=== PATIENT | male | born 1995 | race Caucasian/White ===

== ENCOUNTER 2018-08-05 20:10 | Emergency (ER) | payer OTHER ==
[2018-08-05] MEDS ORDERED: TORAdol 30 mg Injection IM ONE (21:42)
[2018-08-05 21:44] VITALS: BP 129/73
[2018-08-05] MEDS ORDERED: TORAdol 30 mg Injection ONE (21:45)
[2018-08-05 21:48] VITALS: O2SAT 99
--- NOTE | 2018-08-05 21:48 | ERPHSYRPT ---
- History of Present Illness Source: patient Exam Limitations: no limitations Patient Subjective Stated Complaint: pt states he rolled his ankle while playing basketball and thinks he might have broken it Triage Nursing Assessment: pt alert and oriented, transfer fr4om wheelchair to stretcher with no assist, nwb on rt, respirations nonlabored with lungs cta. swellinga nd tendernes noted to rt ankle. pedal pulse and cap refill to rle wnl. Physician History: Pt is a 22 y/o male, that rolled his ankle on the right, today, while playing basketball. Pt states the pain and swelling are severe. He is limited with ROM , secondary to pain. Pt denies F/C/S. No cough, no N/V. Method of Injury: sports injury Occurred: just prior to arrival Quality: constant, throbbing, tightness Severity of Pain-Max: moderate Severity of Pain-Current: moderate Lower Extremities Pain: foot: right (swelling and pain), ankle: right (swelling of the lateral maleolus) Modifying Factors: Improves With: pain medication Associated Symptoms: unable to bear weight Allergies/Adverse Reactions: cephalexin [From Keflex] Allergy (Verified 08/05/18 20:21) Hives Home Medications: No Reportable Medications [No Reported Medications] 08/05/18 [History] Hx Tetanus, Diphtheria Vaccination/Date Given: Yes Hx Influenza Vaccination/Date Given: Yes Hx Pneumococcal Vaccination/Date Given: No Immunizations Up to Date: Yes - Review of Systems Constitutional: No Fever, No Chills Respiratory: No Cough, No Dyspnea Cardiac: No Chest Pain, No Edema, No Syncope Abdominal/Gastrointestinal: No Abdominal Pain, No Nausea, No Vomiting, No Diarrhea Musculoskeletal: Joint Pain, Joint Swelling (of R ankle) - Past Medical History Pertinent Past Medical History: No - Past Surgical History Past Surgical History: Yes Musculoskeletal: Orthopedic Surgery Other Surgical History: rt side knee surgery and rt wrsit surgery - Social History Smoking Status: Never smoker Exposure to second hand smoke: No Drug Use: none Patient Lives Alone: No - Nursing Vital Signs Nursing Vital Signs: Initial Vital Signs Pulse Rate 96 H 08/05/18 20:11 Respiratory Rate 16 08/05/18 20:11 Blood Pressure 142/93 08/05/18 20:11 O2 Sat by Pulse Oximetry 100 08/05/18 20:11 Pain Scale Pain Intensity 5 - Physical Exam General Appearance: alert Cardiovascular/Respiratory Exam: chest non-tender, normal breath sounds, regular rate/rhythm, no respiratory distress Gastrointestinal/Abdominal Exam: non-tender, guarding Ankle Exam: right ankle: ecchymosis, limited range of motion, pain, soft tissue tenderness, swelling Foot Exam: right foot: swelling SpO2: 99 - Radiology Exams Ankle X-ray Interpretation: Discussed w/ radiologist (No fx) Ordered Tests: Active Orders 24 hr Category Date Time Status ANKLE (3 VIEWS) Stat Exams 08/05/18 20:20 Taken FOOT (MINIMUM 3 VIEWS) Stat Exams 08/05/18 21:35 Taken Medication Summary Generic Name Dose Route Start Last Admin Trade Name Freq PRN Reason Stop Dose Admin Ketorolac Tromethamine 30 mg 08/05/18 21:42 Toradol 30 Mg Injection IM 08/05/18 21:43 STAT ONE - Progress Progress: improved Progress Note: 08/05/18 21:47 XR of foot and ankle were done, and no fracture was seen. Dr Mosqueda reassured me, and cleared the pt. Toradol was given IM for pain and inflammation control. A walking boot will be given to the pt. Will see patient in: office Counseled pt/family regarding: need for follow-up, rad results - Departure Time of Disposition: 21:52 Departure Disposition: Home Clinical Impression: Ankle sprain Condition: Stable Critical Care Time: No Referrals: DOCTOR,NO FAMILY [Primary Care Provider] - Instructions: Ankle Sprain (DC) Additional Instructions: Elevate the leg and ice the ankle. Ibuprofen OTC can be used on a PRN basis for pain. F/U with your physician.
[2018-08-05 22:07] VITALS: PULSE 72
--- NOTE | 2018-08-06 08:36 | XRAY ---
Indication: Pain following ankle injury. Comparison: None 3 nonweightbearing views of the right foot demonstrates tiny lateral talus accessory ossicle and small cuboid bone island. No other bony, articular, or soft tissue abnormalities.
--- NOTE | 2018-08-06 08:41 | XRAY ---
Indication: Pain and swelling following injury. Comparison: October 29, 2007. 3 views of the right ankle demonstrates anterior lateral soft tissue swelling with stable accessory ossicle interposed between the lateral malleolus and talus. No acute fracture, dislocation, or suspicious bony lesions.
== END 2018-08-05 22:10 ==
LOC: ED 20:10
DX: S93.401A Sprain of unspecified ligament of right ankle, initial encounter (principal); M25.471 Effusion, right ankle; M25.571 Pain in right ankle and joints of right foot; X50.0XXA Overexertion from strenuous movement or load, initial encounter; X50.3XXA Overexertion from repetitive movements, initial encounter; Y93.67 Activity, basketball
CPT/HCPCS: 73610; 73630; 96372; 99284; J1885

== ENCOUNTER 2021-01-19 22:07 | Emergency (ER) | payer OTHER ==
[2021-01-19] MEDS ORDERED: TYLENOL 325 MG PO STA (22:38)
[2021-01-19] MEDS ORDERED: TYLENOL 325 MG ONE (22:47)
[2021-01-19] MEDS ORDERED: Ativan 1 MG PO ONE (23:01)
[2021-01-19] MEDS ORDERED: Ativan 1 MG ONE (23:05)
--- NOTE | 2021-01-19 23:10 | ERPHSYRPT ---
- History of Present Illness Source: patient, other () Patient Subjective Stated Complaint: "My nose is bleeding" Triage Nursing Assessment: 25 y/o white male arrives via private vehicle with his spouse. Recent history of nasal septum surgery on 01-16-[address] Cantu at [facility]. Has been bleeding slowly bleeding since the surgery. Reported acute onset severe bleeding from both nares despite treatments at home. Had contacted the on-call ent and their recommendation did not work. has diffuse headach. Patient is very anxious during the interview and physical. The nose is significantly swollen with a large clot protruding from the right nare and minimal blood oozing. left nare with dried blood. Oral pharynx without blood noted. Physician History: 25 yo wm s/p septoplasty by Dr. Cantu in [place] on 01/17/21 presents w post-op bleeding today. Pt was seen at [facility] ER earlier today and had bleed treated w TXA and cauterization. He states that it stopped briefly but started again. Timing/Duration: persistent (Smal amount of bleeding since surgery but worse today) Severity: mild ENT Location: nose Prearrival Treatment: over the counter meds (Afrin) Modifying Factors: Improves With: nothing Associated Symptoms: headache, epistaxis, No ear pain (R), No ear pain (L), No cough, No fever, No chills, No change in hearing, No dizziness, No drooling, No ear drainage, No facial pain/swelling, No hearing loss, No jaw pain, No malaise, No motion sickness, No nasal congestion/drainage, No nasal foreign body, No neck pain, No poor fluid intake, No poor solids intake, No ringing of ears, No swollen glands, No sinus infection, No sore throat, No tooth pain, No difficulty swallowing, No voice change Allergies/Adverse Reactions: cephalexin [From Keflex] Allergy (Verified 01/19/21 22:13) Hives Home Medications: No Reportable Medications [No Reported Medications] 08/05/18 [History] Hx Tetanus, Diphtheria Vaccination/Date Given: Yes Hx Influenza Vaccination/Date Given: Yes Hx Pneumococcal Vaccination/Date Given: No Travel Risk - International Travel Have you traveled outside of the country in past 3 weeks: No - Coronavirus Screening Are you exhibiting any of the following symptoms?: No Close contact with a COVID-19 positive Pt in past 14-21 Days: No - Vaccine Status Have you recieved a Covid-19 vaccination: No - Review of Systems Constitutional: No Symptoms Eyes: No Symptoms Respiratory: No Symptoms Cardiac: No Symptoms Abdominal/Gastrointestinal: No Symptoms Genitourinary Symptoms: No Symptoms Musculoskeletal: No Symptoms Skin: No Symptoms Neurological: No Symptoms Psychological: No Symptoms Endocrine: No Symptoms Hematologic/Lymphatic: No Symptoms Immunological/Allergic: No Symptoms - Past Medical History Pertinent Past Medical History: No History: Other Other Medical History: Varicocele - Past Surgical History Past Surgical History: Yes Musculoskeletal: Orthopedic Surgery Other Surgical History: rt side knee surgery and rt wrsit surgery. Nasal septum surgery on 01-16-21. Varicocele surgery 12-11-20 - Social History Smoking Status: Never smoker Exposure to second hand smoke: No Drug Use: none Patient Lives Alone: No Significant Family History: no pertinent family hx - Nursing Vital Signs Nursing Vital Signs: Initial Vital Signs Temperature 99.2 F 01/19/21 22:08 Pulse Rate 89 01/19/21 22:08 Respiratory Rate 18 01/19/21 22:08 Blood Pressure 156/93 01/19/21 22:08 O2 Sat by Pulse Oximetry 99 01/19/21 22:08 Pain Scale Pain Intensity 3 Hypertensive - Physical Exam General Appearance: no apparent distress, alert Eye Exam: bilateral eye: normal inspection, PERRL, EOMI Ear Exam: bilateral ear: canal normal, TM normal Nasal Exam: active bleeding (Mild, active bleeding R nares/Large blood clot R nares) Throat Exam: normal, pharynx normal Neck Exam: normal inspection, non-tender, supple Cardiovascular/Respiratory Exam: normal breath sounds, regular rate/rhythm, heart sounds normal Abdominal Exam: non-tender, soft Neurologic Exam: alert, oriented x 3, cooperative, pinion and wheel truer II-XII nml as tested, normal mood/affect, nml station & gait, sensation nml, No motor deficits, No sensory deficit Skin Exam: normal color SpO2 Interpretation: normal SpO2: 99 O2 Delivery: Room Air - Course Nursing assessment & vital signs reviewed: Yes Ordered Tests: Medication Summary Discontinued Medications Generic Name Dose Route Start Last Admin Trade Name Freq PRN Reason Stop Dose Admin Acetaminophen 975 mg 01/19/21 22:38 01/19/21 22:48 Tylenol 325 Mg PO 01/19/21 22:39 975 mg STAT STA Administration Acetaminophen Confirm 01/19/21 22:47 Tylenol 325 Mg Administered 01/19/21 22:48 Dose 975 mg .ROUTE .STK-MED ONE Lorazepam 1 mg 01/19/21 23:01 01/19/21 23:06 Ativan 1 Mg PO 01/19/21 23:02 1 mg STAT ONE Administration Lorazepam Confirm 01/19/21 23:05 Ativan 1 Mg Administered 01/19/21 23:06 Dose 1 mg .ROUTE .STK-MED ONE Oxymetazoline HCl 15 ml 01/19/21 23:29 01/19/21 23:45 Afrin Nasal [place] NS 01/19/21 23:30 15 ml STAT ONE Administration - Progress Progress Note: 01/19/21 23:25 Tried to clear clot from R nares but effort abated after pt stated that it felt like his R nares stent was being pulled. Spoke w MARINE Ornelas, store product demonstrator for Dr. Cantu. Stated that no ENT in area, so had to transfer to [address] to have an ENT evaluation. Called [facility] and ER actually stated that Dr. Cantu store product demonstrator. Dr. Cantu paged by ER and called. Stated that pt would possibly need ENT bed for observation. 01/19/21 23:43 01/19/21 23:44 01/20/21 00:18 Afrin sprayed into R nares and pressure held. Bleeding slowed to a small trickle. 1mg PO Ativan given while in ER to help w anxiety and elevated BP w mild success. Pt transferred by private vehicle. Stable at transfer time. - Departure Departure Disposition: Transfer Clinical Impression: Epistaxis Condition: Stable Critical Care Time: No Referrals: PAT CAIN PA [Primary Care Provider] - Instructions: Nosebleeds (DC)
[2021-01-19] MEDS ORDERED: AFRIN NASAL SPRAY NS ONE (23:29)
[2021-01-20 00:04] VITALS: BP 150/89; PULSE 78
[2021-01-20 00:20] VITALS: O2SAT 99
== END 2021-01-20 00:24 ==
LOC: ED 22:07
DX: R04.0 Epistaxis (principal); Z98.890 Other specified postprocedural states
CPT/HCPCS: 99284; A9270-GY